=== PATIENT | male | born 1975 | race Caucasian/White ===

== ENCOUNTER 2018-11-29 22:08 | Emergency (ER) | payer BC, SELFPAY ==
[2018-11-29 22:08] VITALS: BP 147/73; PULSE 72; RESP 12; TEMP 36.3; O2SAT 97; BMI 38.2
--- NOTE | 2018-11-29 22:20 | RAD_ITS ---
STUDY: X-RAY - LEFT FOOT CLINICAL: Male, 43 years old. Left foot pain since yesterday. TECHNIQUE: 3 view(s) of the foot. COMPARISON: None. FINDINGS: There is a small plantar calcaneal spur. Normal visualized subtalar, talonavicular, calcaneocuboid, tarsal and tarsometatarsal articulations. Normal metatarsi. Normal metatarsophalangeal joint of the great toe. Normal tibial and fibular sesamoid bones. Normal interphalangeal joint of the great toe. Normal phalanges of the great toe. Normal second through fifth metatarsophalangeal joints. Normal interphalangeal joints and phalanges of the lesser toes. The soft tissue structures are unremarkable. RAD/Foot min 3 Views IMPRESSION: No demonstrated acute osseous changes. Electronically Signed: Crow Summers MD at 22:43 EDT Tel , Service support ,
[2018-11-29 23:34] VITALS: BP 152/70; PULSE 70; RESP 14; O2SAT 98
--- NOTE | 2018-11-30 | ED.DEP ---
ED Disposition - Plan for ED Patient: Instructions: ED Diet Gout, ED Arthritis Gout Prescriptions: Colchicine 0.6 mg PO BID #14 capsule Referrals: Gary Hendrix MD [Primary Care Provider] -
[2018-11-30 00:05] VITALS: BP 148/70; PULSE 80; RESP 14; O2SAT 98
--- NOTE | 2018-11-30 00:14 | ED.VISSUMM ---
- ER Visit Summary Date of Service: 11/30/18 Chief Complaint: Left foot pain History of Present Illness: The patient is a 43 M presenting with left foot pain. Patient states this started yesterday. He does not recall a specific injury. He has pain to the left great toe. Denies other complaints. Physical Examination: Vitals are stable. Patient is afebrile. Alert no acute distress. HEENT exam is unremarkable. Neck is supple. Lungs are clear and equal bilaterally. Heart is regular rate and rhythm. Extremities left great toe tenderness with mild erythema. Normal pulses. Skin is warm and dry. No focal neurologic deficit. Remainder of exam is unremarkable. Emergency Department Course and Treatment: X-ray left foot shows no acute process. I suspect gout. He is given colchicine. He is advised to continue NSAIDs at home. Advised to follow with primary care physician. Advised return to ED for worsening complaints. Disposition: Discharge home Impression: Left great toe pain suspect gout This note was generated with [employer] dictation software. It may contain incorrect words, spelling, and punctuation that were not noted in review of the chart prior to signing ED Disposition - Plan for ED Patient: Instructions: ED Arthritis Gout, ED Diet Gout Prescriptions: Colchicine 0.6 mg PO BID #14 capsule Referrals: Gary Hendirx MD [Primary Care Provider] -
== END 2018-11-30 00:23 | disposition home or self-care (01) ==
LOC: ED 23:56
PROVIDERS: Emergency Provider Emergency Medicine; Family Provider Family Medicine; PCP Family Medicine
DX: M79.675 Pain in left toe(s) (principal)
CPT/HCPCS: 73630; 99282

== ENCOUNTER 2020-06-17 11:10 | Emergency (ER) | payer BC, SELFPAY ==
[2020-06-17 11:11] VITALS: BP 156/98; PULSE 63; RESP 18; TEMP 35.8; O2SAT 99; BMI 38.3
--- NOTE | 2020-06-17 11:24 | CT_ITS ---
STUDY: CT SOFT TISSUE NECK WITH CONTRAST REASON FOR EXAM: Male, 45 years old. PAIN AND SWELLING LEFT SIDE OF NECK--POST BEHIND LEFT EAR RADIATION DOSAGE (If Supplied By Facility): CTDIvol = ( 18.99 ) mGy, DLP = ( 654.82 ) mGycm TECHNIQUE: The patient was scanned in a multi-detector CT scanner. High resolution transaxial imaging was performed following intravenous administration of IV 100mL Isovue-300. Sagittal and coronal images were reconstructed. Individualized dose optimization techniques were used for this CT. COMPARISON: None. FINDINGS: Normal bilateral parotid glands. Normal bilateral audit consultant spaces. Normal bilateral parapharyngeal spaces. Normal bilateral carotid spaces. Normal bilateral sublingual and submandibular glands and spaces. Normal visualized nasopharynx. Normal retropharyngeal space. Normal perivertebral space. Normal visualized bilateral faucial tonsils. The visualized tongue, tongue base and oropharynx are normal. The visualized cervical lymph nodes (levels I-) are within normal size limits, and maintain normal morphology. There is no demonstrated solid or cystic mass lesion. There is no abnormal contrast enhancement. Normal epiglottis, bilateral vallecula and hypopharynx. The pre-epiglottic and paraglottic adipose spaces are normal. Normal visualized bilateral piriform sinuses, aryepiglottic folds, vocal cords, and arytenoid-cricoid articulations. Normal subglottic trachea. Normal bilateral lobes of the thyroid gland. Normal visualized pulmonary apices. Normal visualized paranasal sinuses. Normal visualized cervical spine. CT/Soft Tissue Neck WITH Contrast IMPRESSION: Normal enhanced CT examination of the soft tissues of the neck. Electronically Signed: Cornelius Rivera, at 12:46 EST Tel , Service support ,
--- NOTE | 2020-06-17 11:26 | ED.DCSUM_ITS ---
- ER Visit Summary Date of Service: 06/17/20 Chief Complaint: Neck pain History of Present Illness: The patient is a 45 M who presents with neck pain that has been getting worse over the past 2 weeks. Patient states that today he noted some increased swelling on the left posterior neck area. Patient denies any fevers or chills. Patient denies any discharge or drainage. Patient describes his pain is aching. Patient states nothing makes it better or worse. Patient admits to some mild fatigue but states he does work a lot. Patient denies any exposures to COVID-19. Patient denies any loss of taste or smell. Physical Examination: Vital signs are stable. Patient is afebrile. Patient is in no acute distress. Neck is supple. Trachea is midline. There is some mild tenderness over the left cervical paraspinal muscles. There is some induration noted over the left upper cervical paraspinal area. There is no erythema. There is no fluctuance. There is no discharge or drainage. There is no lymphadenopathy. Heart was regular rate and rhythm. Lungs are clear and equal bilaterally. Abdomen is soft and nontender. Cranial nerves II through XII are intact. There are no focal motor or sensory deficits. Test Results: CBC and basic metabolic profile were obtained and were within normal limits. CT scan of the soft tissue neck was obtained. There is no evidence of any abscess formation. There are no cysts. There is no lymphadenopathy noted. This was interpreted by the radiologist and reviewed by myself. Emergency Department Course and Treatment: Patient was advised of his findings. I will cover the patient with Keflex for possible cellulitis. Patient understands and is agreeable with the plan. All questions were answered. Disposition: Discharge home Impression: 1. Neck pain 2. Possible early cellulitis This note was generated with [employer] dictation software. It may contain incorrect words, spelling, and punctuation that were not noted in review of the chart prior to signing ED Disposition - Plan for ED Patient: Disposition: Home or Assisted Living Diagnosis: Neck pain Instructions: ED Cellulitis Prescriptions: Cephalexin [Keflex] 500 mg PO Q6 #40 cap Prescription Printed Referrals: Gary Hendrix MD [Primary Care Provider] - 5-7 Days
[2020-06-17 11:47] LABS: Absolute Lymphocyte Count 1.86 X10^3/uL (0.83-4.51); Absolute Neutrophil Count 3.3 X10^3/uL (2.0-7.7); Basophil# 0.03 X10^3/uL; Basophil% 0.5 % (0-1); Eosinophil# 0.19 X10^3/uL; Eosinophils% 3.2 % (0-5); Hematocrit 43.6 % (40-54); Hemoglobin 14.6 g/dL (13.0-16.5); Lymphocyte # 1.86 X10^3/ul (4.0); Lymphocyte % 30.9 % (19-41); Mean Corp Hgb Conc 33.5 g/dL (32-36); Mean Corpuscular Volume 89.7 fL (80-94); Mean Platelet Vol. 9.3 fl (6.2-12.0); Monocyte# 0.57 X10^3/uL; Monocyte% 9.5 % (0-10); NRBC Flagged by Analyzer 0 % (0-5); Neutrophil # 3.34 X10^3/uL (2.7-7.7); Neutrophil % 55.6 % (47-70); Platelet Count 187 K/mm3 (150-450); RBC Distribution Width CV 12.9 % (11.6-14.6); RBC Distribution Width SD 42.1 fl (35.1-43.9); Red Blood Count 4.86 M/mm3 (4.6-6.2)
[2020-06-17 11:55] LABS: Anion Gap 2 (5-15); BUN 12 mg/dL (7-18); BUN/Creat Ratio 12.6 RATIO (10-20); Calcium,Total 8.5 mg/dL (8.5-10.1); Chloride 106 mmol/L (98-107); Creatinine, Serum 0.96 mg/dL (0.70-1.30); EST Glomerular Filtration Rate 91 mL/min (>60); Est Glom Filt Rate - Afr Amer 111 mL/min (>60); Estimated Creatinine Clearance 102.45 ml/min; Glucose 215 mg/dL (74-106); Potassium 3.9 mmol/L (3.5-5.1); Sodium Level 139 mmol/L (136-145)
[2020-06-17 13:14] VITALS: BP 166/95; PULSE 63; RESP 16
[2020-06-17] MEDS: Cephalexin 500 MG Capsule PO (13:14)
== END 2020-06-17 13:15 | disposition home or self-care (01) ==
PROVIDERS: Emergency Provider Emergency Medicine; PCP Family Medicine
DX: M54.2 Cervicalgia (principal); R53.83 Other fatigue; E66.9 Obesity, unspecified
CPT/HCPCS: 70491; 80048; 85025; 99285; Q9967; A4216

== ENCOUNTER 2020-09-22 00:38 | Emergency (ER) | payer BC, SELFPAY ==
[2020-09-22 00:39] VITALS: BP 162/91; PULSE 100; RESP 18; TEMP 36.3; O2SAT 94; BMI 36.8
--- NOTE | 2020-09-22 00:57 | ED.VIS.GEN ---
History of Present Illness Chief Complaint: Constipation Informant: Patient Onset: Today Narrative: Presents complaining of feeling constipated. He states he had a normal bowel movement yesterday. Today he felt that he needed to go but was only able get out small hard pieces. He did take 2 Dulcolax a couple hours ago. He states he was able to have a small bowel movement following this but still feels the urge to go but cannot. He is passing gas. He has not had any prior abdominal surgeries. He denies history of constipation. - Past Medical History (1) Bipolar disorder Status: Chronic Past Medical History - Allergies and Home Meds Allergies/Adverse Reactions: Allergies No Known Allergies Allergy (Verified 09/22/20 00:42) Primary Care Physician: Gary Hendrix MD [Primary Care Provider] - Lives: Spouse/ Significant Other Smoking Status: Former smoker Review of Systems General: Denies: Chills, Fever Eyes: Denies: Visual changes - bilaterally ENT: Denies: Bilateral ear pain Cardiovascular: Denies: Chest pain Respiratory: Denies: Dyspnea, Cough Gastrointestinal: Reports: Constipation. Denies: Abdominal pain Genitourinary: Denies: Dysuria Musculoskeletal: Denies: Myalgias, Extremity Pain Skin: Denies: Rash Neurological: Denies: Headache Hematologic: Denies: Easy bruising Allergy: Denies: Uticaria Physical Exam Vital Signs/Narrative: Vital Signs Temp Pulse Resp BP Pulse Ox 09/22/20 00:39 97.4 F L 100 18 162/91 H 94 Inital Vital Signs reviewed: Yes General: Well nourished, Well developed Head: Normocephalic ENT: Moist mucous membranes Cardiovascular: Regular rate, Regular rhythm Respiratory: No distress, CTA bilaterally Abdomen: Soft, Nontender, Normal bowel sounds Extremities: Nontender Skin: Normal color Neurological: Alert, Oriented x3 Psychological: Normal affect Diagnostic/Tx/Re-eval Impressions KUB X-Ray 09/22/20 01:00 IMPRESSION: Normal x-ray examination of the abdomen and pelvis. Electronically Signed: Emily Perdue MD at 1:30 EDT , Service support , 09/22/20 01:00 Abdomen Single View [RAD] Stat - Medical Decision Making Hardy x-ray per my interpretation reveals nonspecific bowel gas pattern. There does not appear to been a stool distally around the rectal vault or sigmoid colon. No evidence of bowel obstruction. Test results discussed with the patient. I do not believe an enema would be beneficial for him. He will be given prescription for magnesium citrate to take. ED Disposition - Plan for ED Patient: Disposition: Home or Assisted Living Diagnosis: Constipation Instructions: ED Constipation (Adult) Prescriptions: Magnesium Citrate [Citrate Of Magnesia] 150 ml PO Q4H PRN PRN #300 ml PRN Reason: Constipation Transmission Status: Pending to [id number] Referrals: Gary Hendrix MD [Primary Care Provider] - 1 Week if not improving
--- NOTE | 2020-09-22 01:00 | RAD_ITS ---
STUDY: X-RAY - ABDOMEN/PELVIS REASON FOR EXAM: Male, 45 years old. constipation TECHNIQUE: Single AP view of the abdomen / pelvis. COMPARISON: None. FINDINGS: Normal visualized lung bases. There is an unremarkable bowel gas pattern. There is no demonstrated free abdominal air. The visualized liver, spleen and kidneys are grossly normal in size and morphology. Normal soft tissue structures. Normal visualized osseous structures. RAD/Abdomen Single View IMPRESSION: Normal x-ray examination of the abdomen and pelvis. Electronically Signed: Emily Perdue MD at 1:30 EDT , Service support ,
== END 2020-09-22 02:00 | disposition home or self-care (01) ==
PROVIDERS: Emergency Provider Emergency Medicine; PCP Family Medicine
DX: K59.00 Constipation, unspecified (principal); Z87.891 Personal history of nicotine dependence
CPT/HCPCS: 74018; 99282

== ENCOUNTER 2020-09-23 03:35 | Emergency (ER) | payer BC, SELFPAY ==
[2020-09-22 00:39] VITALS: BMI 36.8
[2020-09-23 03:36] VITALS: BP 147/95; PULSE 68; RESP 18; TEMP 36.4; O2SAT 98; BMI 36.6
--- NOTE | 2020-09-23 03:59 | CT_ITS ---
STUDY: CT ABDOMEN AND PELVIS WITH CONTRAST REASON FOR EXAM: Male, 45 years old. Rectal pain -- exam: painful HECTOR, normal inspection RADIATION DOSAGE (If Supplied By Facility): CTDIvol = ( 25.15 ) mGy, DLP = ( 1815.08 ) mGycm TECHNIQUE: Transaxial 3.75 mm images were obtained from the dome of the diaphragm to the symphysis pubis with oral contrast. 100mL Isovue-370 was administered. Sagittal and coronal images were reconstructed. There is obesity, the entirety of soft tissue is not imaged. Individualized dose optimization techniques were used for this CT. COMPARISON: Images of the abdominal ultrasound 03/20/2050 FINDINGS: The visualized lung bases are unremarkable. The visualized portions of the heart are within normal limits. There is decreased attenuation of the enlarged liver consistent with steatosis. The gallbladder is contracted. Normal spleen 3. Normal pancreas. Right adrenal gland contains a partially enhancing low-attenuation nodule of 1.6 x 1.2 cm, left adrenal gland and indistinct 0.9 cm nodular density. Normal right kidney. Normal left kidney. Normal visualized stomach. Normal small intestine. Normal colon. There is no anal, rectal or perirectal wall thickening, collection or abscess. There is no fat stranding in the ischiorectal fossa The appendix is visualized and appears normal. Normal abdominal aorta. Normal inferior vena cava. Normal retroperitoneum. Breast urinary bladder. Mild left hydrocele. No inguinal lymphadenopathy. Normal osseous structures. CT/Abdomen/Pelvis WITH Contrast IMPRESSION: No perianal or perirectal abscess, collection or proctitis. Morbid obesity, hepatosplenomegaly, hepatic steatosis. Bilateral adrenal nodularity, not classic appearance for adrenal adenoma, follow-up examination MRI or dynamic CT adrenal gland recommended. Contracted gallbladder without inflammation. Electronically Signed: Laury Jose MD at 6:40 EDT , Service support ,
--- NOTE | 2020-09-23 04:02 | ED.VIS.GEN ---
History of Present Illness Chief Complaint: Other, Pain/Inj Detail of Chief Complaint: rectal pain Informant: Patient Onset: Yesterday Context: Gradual Onset Timing: Continuous Quality: pain Location: inside rectum Current Severity: Severe Maximum Severity: Severe Worsened by: bearing down Relieved by: nothing Associated Symptoms: was constipated, not now Narrative: Patient states he was seen here yesterday for constipation, he was discharged with laxatives that worked this past morning and he had multiple bowel movements all day. He states he had this rectal pain yesterday when he was here, it started when he was trying to push hard to have bowel movements when he was constipated. After leaving the ER, he continued to push to have bowel movements and the pain became more and more. Now tonight it is unbearable. He denies passing any blood. He feels like he is cleaned out and has several good bowel movements as a result of the laxatives he was given. He denies having any abdominal pain, nausea, vomiting, urinary issues, or fever/chills. - Past Medical History (1) Bipolar disorder Status: Chronic Past Medical History - Allergies and Home Meds Allergies/Adverse Reactions: Allergies No Known Allergies Allergy (Verified 09/23/20 03:36) Primary Care Physician: Gary Hendrix MD [Primary Care Provider] - Smoking Status: Former smoker Review of Systems General: Denies: Chills, Fever, Sweats Eyes: Denies: Visual changes - bilaterally, Diplopia ENT: Denies: Rhinorrhea, Sore throat Cardiovascular: Denies: Chest pain, Palpitations Respiratory: Denies: Dyspnea, Cough, Dyspnea on exertion Gastrointestinal: Reports: Constipation - resolved see HPI, - - rectal pain, see HPI. Denies: Abdominal pain, Nausea, Vomiting, Diarrhea, Melena, Hematochezia Genitourinary: Denies: Dysuria, Hematuria, Frequency Musculoskeletal: Denies: Neck pain, Back pain, Extremity Pain Skin: Denies: Rash, Wounds Neurological: Denies: Headache, Weakness, Numbness Physical Exam Vital Signs/Narrative: Vital Signs Temp Pulse Resp BP Pulse Ox 09/23/20 03:36 97.6 F L 68 18 147/95 H 98 Inital Vital Signs reviewed: Yes General: Well nourished, Well developed, Obese, Acute Distress - mild, painful Head: Normocephalic, Atraumatic Eyes: Perrl, EOMI ENT: Moist mucous membranes, No rhinorrhea Neck: Supple, Nontender Cardiovascular: Regular rate, Regular rhythm, No murmurs Respiratory: No distress, CTA bilaterally, Chest nontender Abdomen: Soft, Nontender, Nondistended, Normal bowel sounds Rectal: Tenderness - Diffusely around the anus. There is some mild erythema that comes further out from this, however it is not tender. There is no mass or thrombosed hemorrhoid or any external hemorrhoids. There is no palpable fullness. Patient withdrawals with attempted HECTOR and unable to tolerate so limited. Back: Nontender, Normal Inspection. Negative for: CVA tenderness Extremities: Nontender, No edema Skin: Normal color, No rash, No Trauma Neurological: Alert, Oriented x3, Cranial nerves II-XII grossly intact, Normal Strength, Normal Sensation, Normal Gait Psychological: Normal affect, Normal Mood Diagnostic/Tx/Re-eval Impressions Abdomen/Pelvis CT 09/23/20 03:59 IMPRESSION: No perianal or perirectal abscess, collection or proctitis. Morbid obesity, hepatosplenomegaly, hepatic steatosis. Bilateral adrenal nodularity, not classic appearance for adrenal adenoma, follow-up examination MRI or dynamic CT adrenal gland recommended. Contracted gallbladder without inflammation. Electronically Signed: Laury Jose MD at 6:40 EDT , Service support , 09/23/20 03:59 CT Abd [Abdomen/Pelvis WITH Contrast] [CT] Stat Laboratory Results 09/23/20 09/23/20 04:05 04:05 WBC 10.0 RBC 4.66 Hgb 14.4 Hct 41.3 MCV 88.6 MCH 30.9 MCHC 34.9 RDW Std Deviation 41.8 RDW Coeff of Gallo 12.9 Plt Count 191 MPV 9.3 Immature Gran % (Auto) 0.300 Neut % (Auto) 70.2 H Lymph % (Auto) 19.4 Vermilion % (Auto) 9.6 Eos % (Auto) 0.3 Baso % (Auto) 0.2 Absolute Neuts (auto) 7.0 Absolute Lymphs (auto) 1.93 Nucleated RBC % 0 Sodium 138 Potassium 3.4 L Chloride 103 Carbon Dioxide 31.0 Anion Gap 4 L BUN 11 Creatinine 1.01 Estim Creat Clear Calc 97.37 Est GFR (MDRD) Af Amer 104 Est GFR (MDRD) Non-Af 86 BUN/Creatinine Ratio 10.9 Glucose 179 H Calcium 8.9 - Medical Decision Making No leukocytosis, CT of the abdomen/pelvis shows no acute process, specifically no abscess or mass in the rectum to explain his discomfort. Patient is reassured, this may be simply skin irritation in the perianal area or internal hemorrhoids or early cellulitis. I recommend using topical Neosporin ointment, we will also prescribe him some hydrocortisone cream/foam to use internally, and to avoid bearing down, continue using a stool softener such as MiraLAX or Colace, and to follow-up. ED Disposition - Plan for ED Patient: Disposition: Home or Assisted Living Diagnosis: Rectal pain Instructions: ED Pain, Acute, Uncertain Cause Prescriptions: Pramoxine HCl [Proctofoam] 15 gm RC BID PRN #1 foam PRN Reason: Hemorrhoids Prescription Printed Referrals: Gary Hendrix MD [Primary Care Provider] - 3-5 Days if not improving Additional Instructions: Apply Neosporin or similar antibiotic ointment on the affected area 2 times per day as needed
[2020-09-23] MEDS: Ketorolac 15 MG/ML Vial IV (04:14)
[2020-09-23 04:15] LABS: Absolute Lymphocyte Count 1.93 X10^3/uL (0.83-4.51); Basophil# 0.02 X10^3/uL; Basophil% 0.2 % (0-1); Eosinophil# 0.03 X10^3/uL; Eosinophils% 0.3 % (0-5); Hematocrit 41.3 % (40-54); Hemoglobin 14.4 g/dL (13.0-16.5); Lymphocyte # 1.93 X10^3/ul (4.0); Lymphocyte % 19.4 % (19-41); Mean Corp Hgb Conc 34.9 g/dL (32-36); Mean Corpuscular Hgb 30.9 pg (27.0-32.0); Mean Corpuscular Volume 88.6 fL (80-94); Mean Platelet Vol. 9.3 fl (6.2-12.0); Monocyte# 0.96 X10^3/uL; Monocyte% 9.6 % (0-10); NRBC Flagged by Analyzer 0 % (0-5); Neutrophil # 6.99 X10^3/uL (2.7-7.7); Neutrophil % 70.2 % (47-70); Platelet Count 191 K/mm3 (150-450); RBC Distribution Width CV 12.9 % (11.6-14.6); RBC Distribution Width SD 41.8 fl (35.1-43.9); Red Blood Count 4.66 M/mm3 (4.6-6.2)
[2020-09-23 04:31] LABS: Anion Gap 4 (5-15); BUN 11 mg/dL (7-18); BUN/Creat Ratio 10.9 RATIO (10-20); Calcium,Total 8.9 mg/dL (8.5-10.1); Chloride 103 mmol/L (98-107); Creatinine, Serum 1.01 mg/dL (0.70-1.30); EST Glomerular Filtration Rate 86 mL/min (>60); Est Glom Filt Rate - Afr Amer 104 mL/min (>60); Estimated Creatinine Clearance 97.37 ml/min; Glucose 179 mg/dL (74-106); Potassium 3.4 mmol/L (3.5-5.1); Sodium Level 138 mmol/L (136-145)
[2020-09-23 06:38] VITALS: RESP 18
[2020-09-23 07:46] VITALS: BP 144/69; PULSE 71; RESP 18; O2SAT 98
[2020-09-25 10:44] LABS: AST(SGOT) 28 U/L (15-37); Alanine Aminotransfer ALT/SGPT 95 U/L (16-61); Albumin, Serum 3.7 g/dL (3.2-5.0); Alkaline Phosphatase 72 U/L (45-117); Bilirubin, Direct 0.26 mg/dL (0.00-0.30); GGTP 101 U/L (15-85); Globulin 3.6 g/dL (2.2-4.2); Protein, Total 7.3 g/dL (6.4-8.2)
== END 2020-09-23 07:50 | disposition home or self-care (01) ==
PROVIDERS: Emergency Provider Emergency Medicine; PCP Family Medicine
DX: K62.89 Other specified diseases of anus and rectum (principal); E66.01 Morbid (severe) obesity due to excess calories; F31.9 Bipolar disorder, unspecified; K59.00 Constipation, unspecified; K76.0 Fatty (change of) liver, not elsewhere classified; Z87.891 Personal history of nicotine dependence
CPT/HCPCS: 74177; 80048; 80076; 82533; 82977; 85025; 96361; 96374; 99284; J7030; Q9967; A4216

== ENCOUNTER 2020-09-27 10:20 | Emergency (ER) | payer BC, SELFPAY ==
[2020-09-27 10:21] VITALS: BP 154/86; PULSE 73; RESP 18; TEMP 36.6; O2SAT 98; BMI 36.7
--- NOTE | 2020-09-27 11:22 | ED.DCSUM_ITS ---
History of Present Illness Chief Complaint: GI Bleed Informant: Patient Onset: Days Timing: Intermittent Narrative: Is a 45-year-old male previously diagnosed with hemorrhoids and constipation presenting with continued rectal pain. Patient has still had small palpable but soft stools and is having significant pain whenever he has a bowel movement. He states he feels like there is a twisting press operator at his rectum. He has associated bleeding. He had a CT of his abdomen pelvis performed 09/23 he had some incidental findings but not show any acute pathology. Patient is since followed up with his primary care doctor. He was discharged with a prescription for propofol but did not pick it up. He was previously prescribed magnesium citrate but did not take it as he felt that he had a large bowel movement that he cleared out his bowels. Patient continued to have straining difficult bowel movements. He has been using [id number] Preparation H which has helped with some of his discomfort. Patient also has appointment to follow-up with surgery for his hemorrhoids later this week. No other complaints at this time. Past Medical History - Allergies and Home Meds Allergies/Adverse Reactions: Allergies No Known Allergies Allergy (Verified 09/27/20 10:23) Primary Care Physician: Gary Hendrix MD [Primary Care Provider] - Past Medical History: None Surgical History: no surgical history Lives: Spouse/ Significant Other Smoking Status: Former smoker Review of Systems General: Denies: Chills, Fever, Sweats Eyes: Denies: Visual changes - bilaterally, Diplopia ENT: Denies: Rhinorrhea, Sore throat Cardiovascular: Denies: Chest pain, Palpitations Respiratory: Denies: Dyspnea, Cough, Dyspnea on exertion Gastrointestinal: Reports: Constipation, - - rectal pain . Denies: Abdominal pain, Nausea, Vomiting, Diarrhea, Melena, Hematochezia Genitourinary: Denies: Dysuria, Hematuria, Frequency Musculoskeletal: Denies: Back pain, Extremity Pain Skin: Denies: Rash, Wounds Neurological: Denies: Headache, Weakness, Numbness Physical Exam Vital Signs/Narrative: Vital Signs Temp Pulse Resp BP Pulse Ox 09/27/20 10:21 97.9 F 73 18 154/86 H 98 Inital Vital Signs reviewed: Yes General: Well nourished, Well developed, No Acute Distress Head: Normocephalic, Atraumatic Eyes: Perrl, EOMI ENT: Moist mucous membranes, No rhinorrhea Neck: Supple, Nontender Cardiovascular: Regular rate, Regular rhythm, No murmurs Respiratory: No distress, CTA bilaterally, Chest nontender Abdomen: Soft, Nontender, Nondistended, Hypoactive bowel sounds. Negative for: Tender, Guarding, Rebound tenderness Rectal: Tenderness - External hemorrhoid present. Does not appear to be thrombosed. No active bleeding. Is very painful. Patient does not tolerate digital rectal exam. Back: Nontender, Normal Inspection Extremities: Nontender, No edema Skin: Normal color, No rash Neurological: Alert, Oriented x3, Cranial nerves II-XII grossly intact, Normal Strength, Normal Sensation Psychological: Normal affect, Normal Mood Diagnostic/Tx/Re-eval - Medical Decision Making Evaluated for continued rectal pain. He has hemorrhoids on exam. He likely has associated constipation from his history. He is not taking anything for the constipation. He has been using Preparation H with some improvement of his symptoms. He has appointment to see surgery either later this week or next week for further evaluation of this. Patient was previously prescribed Proctofoam but did not take it. Patient is instructed to take this as a likely help with his pain. He is also instructed to start taking MiraLAX to help with associated constipation. Patient already had a CT and blood work and I do not think repeat imaging or lab work is indicated. His vital signs are stable and I do not suspect an upper GI bleed. I suspect the bleeding he reports is all hemorrhoidal. I was not able to perform a digital rectal exam secondary to patient's pain/intolerance, so I am not sure if he has any mechanical obstruction. Patient is counseled on signs and symptoms requiring return to the emergency room. Patient verbalizes agreement and understand this plan. Patient discharged home in stable and improved condition. ED Disposition - Plan for ED Patient: Disposition: Home or Assisted Living Diagnosis: Hemorrhoids, Constipation Instructions: ED Hemorrhoids, ED Constipation (Adult) Prescriptions: Polyethylene Glycol 3350 [Miralax] 17 gm PO DAILY #20 packet Transmission Status: Pending to [facility]/pharmacy #[id number] Referrals: Gary Hendrix MD [Primary Care Provider] - Additional Instructions: Your pain is hemorrhoids. I suspect he still have constipation even though you been having small bowel movements. Please take MiraLAX daily to help you have regular soft bowel movements that are larger. Use the hemorrhoidal foam that was prescribed to you on your last ER visit but this will help with the hemorrhoidal pain. Follow-up with surgery and your primary care doctor as scheduled.
[2020-09-27 11:42] VITALS: BP 119/68; PULSE 53; RESP 17
== END 2020-09-27 11:46 | disposition home or self-care (01) ==
PROVIDERS: Emergency Provider Emergency Medicine; PCP Family Medicine
DX: K64.9 Unspecified hemorrhoids (principal); K59.00 Constipation, unspecified; Z87.891 Personal history of nicotine dependence
CPT/HCPCS: 99282

== ENCOUNTER → 2020-10-05 06:09 | Outpatient (CLI) | payer BC, SELFPAY ==
[2020-09-23 03:36] VITALS: BMI 36.6
[2020-09-27 10:21] VITALS: BMI 36.7
--- NOTE | 2020-10-05 06:37 | MRI_ITS ---
MR Abdomen WO/W Contrast 10/05/2020 7:00 AM COMPARISON: CT 09/23/2020 CLINICAL HISTORY: BILAT ADRENAL MASSES TECHNIQUE: Multiplanar T1 and T2 weighted and dynamic post-gadolinium images were obtained through the abdomen using standard adrenal mass protocol. FINDINGS: Liver: The liver is enlarged and there is a diffuse drop in signal on out of phase imaging compared to in phase imaging compatible with hepatic steatosis. Gallbladder: Unremarkable Spleen: Unremarkable Pancreas: Unremarkable Adrenal Glands: 1.6 cm T1 isointense/T2 hypointense nodule in the right adrenal gland. There is visible drop in signal on out of phase imaging compared to in phase imaging. This is diagnostic of fat-containing adrenal adenoma. The previously described ill-defined 9 mm left adrenal nodule is difficult to characterize on this examination due to its size. Kidneys: Few scattered tiny cysts. GI Tract: Unremarkable Vasculature: Unremarkable Lymphadenopathy: Absent Ascites: Absent Bones: No suspicious lesions MRI/MRI Abd WITH and W/O Contrast IMPRESSION: 1.6 cm right adrenal adenoma. Ill-defined 9 mm left adrenal nodule is difficult to characterize on this examination. Recommend follow-up CT abdomen without contrast in one year to assess for stability. Hepatomegaly and hepatic steatosis. Electronically Signed: Tigre Wang MD at 16:22 EDT Tel , Service support ,
== END ==
PROVIDERS: PCP Family Medicine; Referring Provider Family Medicine; Visit Provider Family Medicine
DX: E27.8 Other specified disorders of adrenal gland (principal)
CPT/HCPCS: 74183; A9575

== ENCOUNTER 2022-03-28 17:30 | Emergency (ER) | payer BC, SELFPAY ==
[2022-03-28 17:31] VITALS: BP 145/91; PULSE 88; RESP 16; TEMP 36.2; O2SAT 97; BMI 33.8
--- NOTE | 2022-03-28 17:45 | ED.RN ---
PT REPORTS THAT HE CUASE CHOAS AND HE CAN DEAL WITH IT BUT CANT DEAL WITH HOW IT EFFECTS PEOPLE AROUND HIM. JULIANA WORKED BEEN 6 YEARS SINCE HES BEEN ON SOMETHING
--- NOTE | 2022-03-28 17:52 | EDS_ITS ---
HPI HPI - Psych History of Present Illness Chief Complaint: Mental Health Informant: patient Narrative Narrative: Patient presents stating that he was sent in by crisis and needs to be evaluated. He has a history of bipolar disorder and has not been medicated in at least the last 6 years. Has been self-medicating with marijuana. He states symptoms have gotten worse recently and he has not been able to get in to see either the counseling center or [facility]. He called crisis today and they advised him to come to the emergency room. He denies being suicidal or homicidal, but states he knows he needs to get help now. [facility] Medical History ADHD Bipolar 1 disorder Diabetes Allergy/AdvReac Type Severity Reaction Status Date / Time No Known Allergies Allergy Verified 03/28/22 17:30 Social History Smoking Status: Former smoker ROS ROS ED Constitutional Constitutional ED: Denies chills or fever(s) Eyes Eyes: Denies change in vision or discharge from eye(s) ENT ENT ED: Denies discharge from eye(s), rhinorrhea or sore throat Cardiovascular Cardiovascular: Denies chest pain or palpitations Respiratory/Chest Respiratory/Chest: Denies cough or dyspnea Gastrointestinal Gastrointestinal: Denies abdominal pain, nausea or vomiting Genitourinary Genitourinary ED: Denies dysuria Musculoskeletal Musculoskeletal: Denies back pain or extremity pain Integumentary Denies Abrasions or rash Neurologic Neurologic: Denies headache(s) or weakness Psychiatric Psychiatric: Reports anxiety and depression; Denies suicidal ideation Endocrine Endocrinology: Denies polydipsia or polyuria Allergic/Immunologic Allergic/Immunologic ED: Denies lip swelling or urticaria EXAM Physical Exam Const Vital Signs: 03/28/22 17:31 03/28/22 19:42 03/28/22 20:31 Temperature 97.2 F L Temperature Source Temporal Pulse Rate 88 74 Respiratory Rate 16 16 15 Blood Pressure 145/91 H 138/86 H Blood Pressure Mean 109 103 Pulse Ox 97 98 Oxygen Delivery Method Room Air Room Air Room Air Positive well nourished and well developed General Appearance ED: well developed HEENT Reports normocephalic and head/scalp atraumatic Eyes PERRL and EOMs intact bilaterally Neck supple Chest Wall inspection of chest normal and palpation of chest normal Resp normal respiratory effort and clear to auscultation bilaterally Cardio regular rate and regular rhythm GI normal to inspection, nondistended, normoactive bowel sounds Palpation: soft Back/Spine no CVA tenderness Extremity normal to inspection Neuro oriented x3 and no sensory deficits noted Sensorium / Orientation: alert Motor Exam: strength 5/5 throughout Psych mental status grossly normal and cooperative Skin no rashes or lesions noted MDM MDM MDM Narrative Medical decision making narrative: Lab work for psychiatric medical clearance obtained. Lab Data Attestation: I reviewed the patient's lab results. Labs: Laboratory Results - last 24 hr 03/28/22 03/28/22 03/28/22 17:54 17:54 17:54 WBC 6.5 RBC 5.06 Hgb 15.8 Hct 45.9 MCV 90.7 MCH 31.2 MCHC 34.4 RDW Std Deviation 42.2 RDW Coeff of Gallo 12.9 Plt Count 191 MPV 9.0 Immature Gran % (Auto) 0.300 Neut % (Auto) 67.3 Lymph % (Auto) 21.5 [place] % (Auto) 8.7 Eos % (Auto) 1.7 Baso % (Auto) 0.5 Absolute Neuts (auto) 4.4 Absolute Lymphs (auto) 1.39 Nucleated RBC % 0 Sodium 141 Potassium 4.3 Chloride 105 Carbon Dioxide 31.0 Anion Gap 5 BUN 14 Creatinine 1.00 Estim Creat Clear Calc 97.33 Est GFR (MDRD) Af Amer 104 Est GFR (MDRD) Non-Af 86 BUN/Creatinine Ratio 14.0 Glucose 221 H Calcium 9.0 Urine Opiates Screen Urine Methadone Screen Ur Barbiturates Screen Ur Phencyclidine Scrn Ur Amphetamines Screen MDMA (Ecstasy) Screen U Benzodiazepines Scrn Urine Cocaine Screen U Cannabinoids Screen Ur Drug Screen Comment Ethyl Alcohol < 3.0 03/28/22 17:54 WBC RBC Hgb Hct MCV MCH MCHC RDW Std Deviation RDW Coeff of Gallo Plt Count MPV Immature Gran % (Auto) Neut % (Auto) Lymph % (Auto) [place] % (Auto) Eos % (Auto) Baso % (Auto) Absolute Neuts (auto) Absolute Lymphs (auto) Nucleated RBC % Sodium Potassium Chloride Carbon Dioxide Anion Gap BUN Creatinine Estim Creat Clear Calc Est GFR (MDRD) Af Amer Est GFR (MDRD) Non-Af BUN/Creatinine Ratio Glucose Calcium Urine Opiates Screen NEGATIVE Urine Methadone Screen NEGATIVE Ur Barbiturates Screen NEGATIVE Ur Phencyclidine Scrn NEGATIVE Ur Amphetamines Screen NEGATIVE MDMA (Ecstasy) Screen NEGATIVE U Benzodiazepines Scrn NEGATIVE Urine Cocaine Screen NEGATIVE U Cannabinoids Screen POSITIVE H Ur Drug Screen Comment Ethyl Alcohol Treatment and Re-Evaluation Narrative: CBC and chemistry studies unremarkable other than a glucose of 221.. Alcohol less than 3. Tox screen positive only for cannabinoids. COVID test is negative. Patient talked to Concepcion from counseling center on the phone. She is going to try to find placement for him as he has been without treatment for several years and does not feel that he can wait couple more weeks to be seen as an outpatient. Discharge Plan Triage Chief Complaint: Mental Health ED Provider: Evelin Morel Dx/Rx/DC Orders Clinical Impression: Bipolar disorder Primary Care Provider: Gary Hendrix Referrals: Gary Hendrix MD [Primary Care Provider] - Disposition Disposition: Psychiatric Hospital or Unit
[2022-03-28 18:07] LABS: Absolute Lymphocyte Count 1.39 X10^3/uL (0.83-4.51); Absolute Neutrophil Count 4.4 X10^3/uL (2.0-7.7); Basophil# 0.03 X10^3/uL; Basophil% 0.5 % (0-1); Eosinophil# 0.11 X10^3/uL; Eosinophils% 1.7 % (0-5); Hematocrit 45.9 % (40-54); Hemoglobin 15.8 g/dL (13.0-16.5); Lymphocyte # 1.39 X10^3/ul (0.83-4.51); Lymphocyte % 21.5 % (19-41); Mean Corp Hgb Conc 34.4 g/dL (32-36); Mean Corpuscular Hgb 31.2 pg (27.0-32.0); Mean Corpuscular Volume 90.7 fL (80-94); Monocyte# 0.56 X10^3/uL; Monocyte% 8.7 % (0-10); NRBC Flagged by Analyzer 0 % (0-5); Neutrophil # 4.36 X10^3/uL (2.7-7.7); Neutrophil % 67.3 % (47-70); Platelet Count 191 K/mm3 (150-450); RBC Distribution Width CV 12.9 % (11.6-14.6); RBC Distribution Width SD 42.2 fl (35.1-43.9); Red Blood Count 5.06 M/mm3 (4.6-6.2); White Blood Count 6.5 K/mm3 (4.4-11.0)
[2022-03-28 18:20] LABS: Anion Gap 5 (5-15); BUN 14 mg/dL (7-18); Chloride 105 mmol/L (98-107); EST Glomerular Filtration Rate 86 mL/min (>60); Est Glom Filt Rate - Afr Amer 104 mL/min (>60); Estimated Creatinine Clearance 97.33 ml/min; Glucose 221 mg/dL (74-106); Potassium 4.3 mmol/L (3.5-5.1); Sodium Level 141 mmol/L (136-145)
[2022-03-28 18:22] LABS: Amphetamine Urine VISTA NEGATIVE (<1000 ng/mL); Barbiturate Urine VISTA NEGATIVE (< 200 ng/mL); Benzodiazepine Urine VISTA NEGATIVE (< 200 ng/mL); Cocaine Urine VISTA NEGATIVE (< 300 ng/mL); Ecstacy Urine VISTA NEGATIVE (< 500 ng/mL); Methadone Urine VISTA NEGATIVE (< 300 ng/mL); PCP Urine VISTA NEGATIVE (< 25 ng/mL); THC Urine VISTA POSITIVE (< 50 ng/mL); Vista UDS pH Range 4
[2022-03-28 18:48] LABS: Alcohol, Blood (Medical)-Serum < 3.0 mg/dL
[2022-03-28 19:42] VITALS: RESP 16
[2022-03-28 20:31] VITALS: BP 138/86; PULSE 74; RESP 15; O2SAT 98
[2022-03-28 23:22] VITALS: BP 148/86; PULSE 62; RESP 16; O2SAT 97
[2022-03-29] MEDS: Acetaminophen 500 MG Tablet 1000 MG PO (01:39)
[2022-03-29 01:56] VITALS: BP 148/86; PULSE 62; RESP 16; O2SAT 97
== END 2022-03-29 01:57 | disposition home or self-care (01) ==
PROVIDERS: Emergency Provider Emergency Medicine; PCP Family Medicine; Visit Provider Emergency Medicine
DX: F31.9 Bipolar disorder, unspecified (principal); E11.9 Type 2 diabetes mellitus without complications; Z87.891 Personal history of nicotine dependence; F90.9 Attention-deficit hyperactivity disorder, unspecified type; F12.90 Cannabis use, unspecified, uncomplicated
CPT/HCPCS: 80048; 80307; 82077; 85025; 87811; 99283

== ENCOUNTER 2022-08-09 09:23 | Emergency (ER) | payer BC, SELFPAY ==
[2022-08-09 09:24] VITALS: BP 153/95; PULSE 89; RESP 18; TEMP 36.6; O2SAT 96; BMI 35.2
--- NOTE | 2022-08-09 09:24 | EKG12_ITS ---
Test Reason : SI Blood Pressure : / mmHG Vent. Rate : 083 BPM Atrial Rate : 083 BPM P-R Int : 158 ms QRS Dur : 100 ms QT Int : 378 ms P-R-T Axes : 039 018 054 degrees QTc Int : 444 ms Normal sinus rhythm Normal ECG Confirmed by MARISEL PERDOMO, ALEX ([id number]), news videotape editor ARY TINEO ([id number]) on 08/12/2022 12:38:41 PM Referred By: Confirmed By:ALEX JOINER MD
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
[2022-08-09 09:56] LABS: Absolute Lymphocyte Count 1.67 X10^3/uL (0.83-4.51); Absolute Neutrophil Count 4.5 X10^3/uL (2.0-7.7); Basophil# 0.03 X10^3/uL; Basophil% 0.4 % (0-1); Eosinophils% 1.5 % (0-5); Hematocrit 44.9 % (40-54); Hemoglobin 15.7 g/dL (13.0-16.5); Lymphocyte # 1.67 X10^3/ul (0.83-4.51); Lymphocyte % 24.3 % (19-41); Mean Corpuscular Hgb 30.5 pg (27.0-32.0); Mean Corpuscular Volume 87.2 fL (80-94); Mean Platelet Vol. 9.2 fl (6.2-12.0); Monocyte% 8.7 % (0-10); NRBC Flagged by Analyzer 0 % (0-5); Neutrophil # 4.45 X10^3/uL (2.7-7.7); Neutrophil % 64.8 % (47-70); Platelet Count 200 K/mm3 (150-450); RBC Distribution Width CV 13.2 % (11.6-14.6); RBC Distribution Width SD 41.5 fl (35.1-43.9); Red Blood Count 5.15 M/mm3 (4.6-6.2); White Blood Count 6.9 K/mm3 (4.4-11.0)
[2022-08-09 10:01] LABS: Bedside Glucose 154 mg/dL (74-106)
[2022-08-09 10:11] LABS: Anion Gap 9 (5-15); BUN 19 mg/dL (7-18); Calcium,Total 9.1 mg/dL (8.5-10.1); Chloride 103 mmol/L (98-107); Creatinine, Serum 1.27 mg/dL (0.70-1.30); EST Glomerular Filtration Rate 65 mL/min (>60); Est Glom Filt Rate - Afr Amer 79 mL/min (>60); Estimated Creatinine Clearance 75.84 ml/min; Glucose 127 mg/dL (74-106); Potassium 3.3 mmol/L (3.5-5.1); Sodium Level 140 mmol/L (136-145)
[2022-08-09 10:26] LABS: Amphetamine Urine VISTA NEGATIVE (<1000 ng/mL); Barbiturate Urine VISTA NEGATIVE (< 200 ng/mL); Benzodiazepine Urine VISTA NEGATIVE (< 200 ng/mL); Cocaine Urine VISTA NEGATIVE (< 300 ng/mL); Ecstacy Urine VISTA POSITIVE (< 500 ng/mL); Methadone Urine VISTA NEGATIVE (< 300 ng/mL); PCP Urine VISTA NEGATIVE (< 25 ng/mL); THC Urine VISTA POSITIVE (< 50 ng/mL); Vista UDS pH Range 5
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
--- NOTE | 2022-08-09 10:42 | CM.ED ---
MAYRA updated patient that he is going to inpatient psych. Patient voiced concern regarding his job. MAYRA reminded patient that he wanted to and used a ordering box operator to his arm and thus requires inpatient psych. MAYRA called Samantha at [facility]. They have beds. MAYRA faxed referral. MAYRA faxed referral to [facility]. MAYRA attempted to call [facility] and Charge and the phone would ring with no answer and then hang up. Thu ROBLES
[2022-08-09 11:00] VITALS: RESP 16
--- NOTE | 2022-08-09 11:41 | CM.ED ---
SW Note MAYRA received call from Alessia regarding patient. Patient was accepted at [facility] in [place]. Accepting MD is Yang. Unit to be determined. RN to RN is [phone] or [phone]. Fax pink slip to [phone]. MAYRA inquired if pink slip can say [facility] and Alessia said yes. MAYRA faxed pink slip to [facility]. MAYRA called Samantha at [facility]. They got the pink slip and all is good. confidential secretary, Dale, to set up transport. Plan: [facility] Thu ROBLES
--- NOTE | 2022-08-09 12:14 | ED.RN ---
Report called to Desiree at [facility] [place]
== END 2022-08-09 12:10 ==
LOC: ED 10:21
PROVIDERS: Emergency Provider Emergency Medicine; PCP Family Medicine; Visit Provider Emergency Medicine
DX: R45.851 Suicidal ideations (principal); F31.9 Bipolar disorder, unspecified; E11.9 Type 2 diabetes mellitus without complications; Z87.891 Personal history of nicotine dependence; Z63.8 Other specified problems related to primary support group; F12.90 Cannabis use, unspecified, uncomplicated; F90.9 Attention-deficit hyperactivity disorder, unspecified type
CPT/HCPCS: 80048; 80307; 82077; 82962; 85025; 87811; 93005; 99282

== ENCOUNTER 2024-11-29 14:31 | Emergency (ER) | payer BC, SELFPAY ==
[2024-11-29 14:33] VITALS: BP 172/119; PULSE 127; RESP 18; TEMP 36.4; O2SAT 95
--- NOTE | 2024-11-29 14:38 | CT_ITS ---
PROCEDURE: BRAIN/HEAD WITHOUT CONTRAST 11/29/2024 REASON FOR EXAM: TRAUMA TECHNIQUE: Head CT without intravenous contrast. Coronal and Sagittal reconstruction series were provided. One or more dose reduction techniques were used (e.g., Automated exposure control, adjustment of the mA and/or kV according to patient size, use of iterative reconstruction technique. RADIATION DOSE SUMMARY: DLP: 864 mGycm COMPARISON: None FINDINGS: There is no acute infarct, intracranial hemorrhage, or mass effect. There is no hydrocephalus or significant midline shift. No acute, depressed calvarial fractures. No large scalp hematomas. CT/Brain/Head without Contrast IMPRESSION: No acute intracranial process. Reading Location: [id number]
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
[2024-11-29] MEDS: Diphth,Pertuss(Acell),Tet Vac 0.5 ML Vial IM (14:50)
--- NOTE | 2024-11-29 15:00 | CT_ITS ---
PROCEDURE: SPINE CERVICAL WITHOUT CONTRAS 11/29/2024 REASON FOR EXAM: TRAUMA TECHNIQUE: Cervical spine CT without contrast. Coronal and Sagittal reconstruction series were provided. One or more dose reduction techniques were used (e.g., Automated exposure control, adjustment of the mA and/or kV according to patient size, use of iterative reconstruction technique RADIATION DOSE SUMMARY: DLP: 584 mGycm COMPARISON: 06/17/2020 FINDINGS: No acute compression deformity, fracture, or subluxation. Mild multilevel degenerative changes with mild multilevel foraminal stenosis due to facet hypertrophy and uncovertebral hypertrophy. There is mild multilevel central canal stenosis. No high-grade spinal canal stenosis. The prevertebral soft tissues are not thickened. Thyroid is unremarkable Limited sections of the lung apices demonstrate no pneumothorax. CT/Spine Cervical without Contras IMPRESSION: No acute cervical compression fracture or subluxations. Reading Location: [id number]
--- NOTE | 2024-11-29 15:00 | CT_ITS ---
PROCEDURE: CT CHEST, ABD, PELVIS WO CONT 11/29/2024 REASON FOR EXAM: TRAUMA TECHNIQUE: Chest abdomen and pelvis CT with intravenous contrast. Coronal and Sagittal reconstruction series were provided. One or more dose reduction techniques were used (e.g., Automated exposure control, adjustment of the mA and/or kV according to patient size, use of iterative reconstruction technique. PATIENT PREPARATION: Per protocol ORAL CONTRAST TYPE: None. CONTRAST: None RADIATION DOSE SUMMARY: DLP: 3398 mGycm COMPARISON: CT abdomen pelvis from 09/23/2020 FINDINGS: CHEST: Mediastinum: Unremarkable Heart: Within normal limits in size. No significant pericardial effusion. Thoracic Aorta: Unremarkable Lungs and Airways: No focal consolidations. Pleura: Pleural effusion or pneumothorax Bones: No acute fractures. ABDOMEN AND PELVIS: The liver, spleen, pancreas, both kidneys, and both adrenal glands demonstrate no acute findings. Hepatomegaly to 20.1 cm. Stable nodular thickening versus 2.4 x 1.7 cm nodule within the right adrenal gland 1.1 x 1.1 cm left adrenal gland nodule. 1.6 x 1.1 cm cyst within the right kidney. Gallbladder is contracted. The stomach is unremarkable. The aorta and IVC demonstrate no acute findings. Minimal atherosclerosis of the abdominal vasculature. There is no free air, free fluid or intestinal obstruction. The small bowel loops are not dilated. The appendix is normal. No bowel obstruction. The pelvic structures are intact. There is no solid pelvic mass. The urinary bladder is partially distended. Visualized osseous structures demonstrate no acute abnormality. CT/CT Chest, Abd, Pelvis WO Cont IMPRESSION: No acute traumatic findings. Reading Location: [id number]
--- NOTE | 2024-11-29 15:08 | RAD_ITS ---
PROCEDURE: FOREARM 2 VIEWS 11/29/2024 REASON FOR EXAM: TRAUMA TECHNIQUE: 2 view(s) of the right forearm COMPARISON: None. RAD/Forearm 2 Views IMPRESSION: No radiopaque foreign body is seen. No soft tissue gas is evident. Mild degenerative changes are seen of the humeroulnar articulation, most appare nt medially. No fracture or dislocation is seen. If clinical concern persists, short-term follow-up imaging may be obtained to r ule out a currently occult fracture. Reading Location: [id number]
[2024-11-29] MEDS: Ibuprofen 400 MG Tablet 800 MG PO (15:40)
[2024-11-29 16:52] VITALS: BP 172/99; PULSE 102; RESP 18; TEMP 36.7; O2SAT 100
== END 2024-11-29 16:55 | disposition home or self-care (01) ==
PROVIDERS: Emergency Provider Emergency Medicine; Visit Provider Emergency Medicine
DX: S50.811A Abrasion of right forearm, initial encounter (principal); F31.9 Bipolar disorder, unspecified; E11.9 Type 2 diabetes mellitus without complications; M79.631 Pain in right forearm; Z87.891 Personal history of nicotine dependence; F90.9 Attention-deficit hyperactivity disorder, unspecified type; V23.49XA Other motorcycle driver injured in collision with car, pick-up truck or van in traffic accident, initial encounter; S20.20XA Contusion of thorax, unspecified, initial encounter
CPT/HCPCS: 70450; 71250; 72125; 73090; 74176; 90715; 99284

== ENCOUNTER 2025-04-21 19:07 | Emergency (ER) | payer BC, SELFPAY ==
[2025-04-21 19:09] VITALS: BP 142/84; PULSE 88; RESP 18; TEMP 36.7; O2SAT 100; BMI 36.8
--- NOTE | 2025-04-21 19:10 | RAD_ITS ---
PROCEDURE: HAND MIN 3 VIEWS 04/21/2025 REASON FOR EXAM: TRAUMA TECHNIQUE: Procedure Code: VÍCTOR Modality: DX Procedure: HAND MIN 3 VIEWS Laterality: Right FINDINGS: No acute fracture or dislocation. No significant bone or joint abnormality. No focal soft tissue swelling. RAD/Hand Min 3 Views IMPRESSION: As above. Reading Location: [id number]
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
[2025-04-21 20:37] VITALS: BP 144/92; PULSE 63; RESP 16; TEMP 36.8; O2SAT 97
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
== END 2025-04-21 21:01 | disposition home or self-care (01) ==
LOC: ED 20:43
PROVIDERS: Emergency Provider Emergency Medicine; Visit Provider Emergency Medicine
DX: S60.221A Contusion of right hand, initial encounter (principal); E11.9 Type 2 diabetes mellitus without complications; Z87.891 Personal history of nicotine dependence; F12.90 Cannabis use, unspecified, uncomplicated; R03.0 Elevated blood-pressure reading, without diagnosis of hypertension; W22.8XXA Striking against or struck by other objects, initial encounter
CPT/HCPCS: 73130; 99282